=== PATIENT | male | born 1980 | race African-American/Black ===

== ENCOUNTER 2017-09-01 00:36 | Emergency (ER) | payer MEDICAID ==
[~2017-09-01] VITALS: Ht 175.3 cm; Wt 72.6 kg
[2017-09-01] MEDS ORDERED: LORAZEPAM 0.5 MG TABLET PO ONE (01:00)
[2017-09-01] MEDS ORDERED: ONDANSETRON ODT 4 MG TAB.RAPDIS SL ONE (01:00)
[2017-09-01] MEDS ORDERED: ONDANSETRON ODT 4 MG TAB.RAPDIS ONE (01:02)
[2017-09-01] MEDS ORDERED: LORAZEPAM 0.5 MG TABLET ONE (01:02)
--- NOTE | 2017-09-01 01:07 | NUR ---
PT LEFT IMMEDIATELY AFTER MED ADMINISTRATION. PT INFORMED, BUT NOT WILLING TO STAY FOR NAUSEA/ANXIETY REASSESSMENT.
[2017-09-01 01:14] VITALS: BP 119/80
--- NOTE | 2017-09-01 01:14 | NUR ---
Patient discharged to home in stable conditon. Written and verbal after care instructions given. Patient verbalizes understanding of instructions. Patient able to ambulate unassisted with steady gait. Patient left with all belongings.
== END 2017-09-01 01:15 | disposition home or self-care (01) ==
LOC: ER 00:40
DX: F41.9 Anxiety disorder, unspecified (principal); F32.9 Major depressive disorder, single episode, unspecified; F17.210 Nicotine dependence, cigarettes, uncomplicated; F12.10 Cannabis abuse, uncomplicated; F15.10 Other stimulant abuse, uncomplicated
CPT/HCPCS: A4663; Q0162

== ENCOUNTER 2021-06-09 15:08 | Emergency (ER) | payer MEDICAID, OTHER ==
[~2021-06-09] VITALS: Ht 175.3 cm; Wt 72.6 kg
[2021-06-09] MEDS ORDERED: XANAX (15:19)
[2021-06-09] MEDS ORDERED: KLONOPIN (15:20)
[2021-06-09] MEDS ORDERED: CELEXA (15:20)
--- NOTE | 2021-06-09 15:27 | NUR ---
PT IS IN ROOM #2B. DR JIMENEZ EVALUATED THE PT.
[2021-06-09] MEDS ORDERED: LORAZEPAM 0.5 MG TABLET PO ONE (15:30)
[2021-06-09] MEDS ORDERED: MAG HYDROX/AL HYDROX/SIMETH 30 ML LIQUID UDC PO ONE (15:30)
[2021-06-09] MEDS ORDERED: LORA-258 PO (15:31)
[2021-06-09] MEDS ORDERED: OMEP40CA21 PO (15:31)
--- NOTE | 2021-06-09 15:38 | NUR ---
PT WAS D/C'd TO HOME. D/C INSTRUCTIONS GIVEN TO THE PT BY DR JIMENEZ.
[2021-06-09 15:40] VITALS: BP 131/71
[2021-06-09] MEDS ORDERED: LORAZEPAM 0.5 MG TABLET ONE (15:42)
[2021-06-09] MEDS ORDERED: MAG HYDROX/AL HYDROX/SIMETH 30 ML LIQUID UDC ONE (15:43)
== END 2021-06-09 15:40 | disposition home or self-care (01) ==
LOC: ER 15:08
DX: K21.9 Gastro-esophageal reflux disease without esophagitis (principal); F41.9 Anxiety disorder, unspecified
CPT/HCPCS: A4663